=== PATIENT | female | born 1950 | race Caucasian/White ===

== ENCOUNTER 2018-08-22 05:54 | Day surgery (SDC) | payer OTHER, MEDICARE ==
--- NOTE | 2018-08-19 14:22 | PDHPUP ---
History & Physical Update H&P update statement: This history and physical update is based on an assessment of the patient which was completed after admission or registration (within 24 hours), but prior to the surgery/procedure. H&P update: H&P reviewed & patient examined
--- NOTE | 2018-08-21 20:06 | PDANEPAE ---
ANE History of Present Illness tonsillectomy. ANE Past Medical History - Cardiovascular History Hx Hypertension: No Hx Arrhythmias: No Hx Chest Pain: No Hx Coronary Artery / Peripheral Vascular Disease: No Hx CHF / Valvular Disease: No Hx Palpitations: No Cardiovascular History Comment: DIASTOLIC DYSFUNCTION. PVC'S - Pulmonary History Hx COPD: No Hx Asthma/Reactive Airway Disease: Yes Hx Recent Upper Respiratory Infection: No Hx Oxygen in Use at Home: No Hx Sleep Apnea: Yes Pulmonary History Comment: PE POST HIP REPLACEMENT SURG 05/2018. ASTHMA TRIGGERS EXERCISE INDUCED,ENVIRONMENTAL. SHERLYN USES C-PAP. NODULE LT LUNG - Neurologic History Hx Cerebrovascular Accident: No Hx Seizures: No Hx Dementia: No - Endocrine History Hx Diabetes: Yes Hypothyroid: Yes Hyperthyroid: No Obesity: severe Endocrine History Comment: HYPOTHYROID. THYROID NODULES - Renal History Hx Renal Disorders: No - Liver History Hx Hepatic Disorders: No - Neurological & Psychiatric Hx Hx Neurological and Psychiatric Disorders: No - Cancer History Hx Cancer: Yes Cancer History Comment: SKIN - Congenital Disorder History Hx Congenital Disorders: No - GI History Hx Gastrointestinal Disorders: Yes Gastrointestinal History Comment: CONSTIPATION - Other Health History Other Health History: DYSPHAGIA. ECZEMA RT HAND. CLARENCE LOWER EXT SWELLING. RHEUMATOID ARTHRITIS CURRENTLY NOT ON MEDICATION. NO ISSUES PER PATIENT WITH FLEXION/EXTENSION OR ROTATION OF NECK - Chronic Pain History Chronic Pain: Yes (LT HIP) - Surgical History Prior Surgeries: LT TOTAL HIP 06/02/2018 AT [facility] HAD POST OP PE. LUMBAR FUSION 08/2017. PAMELA. CERVICAL FUSION X3. HYSTERECTOMY. CLARENCE FOOT CORRECTION BIG TOE. LT TOTAL KNEE ANE Review of Systems Review of Systems: - Exercise capacity METS (RN): 2 METS ANE Patient History - Allergies Allergies/Adverse Reactions: cephalexin [From Keflex] Allergy (Verified 08/19/18 11:42) Rash clindamycin Allergy (Verified 08/19/18 11:42) RASH/ITCHING codeine Allergy (Verified 08/19/18 11:42) RASH/ITCHING erythromycin base Allergy (Verified 08/19/18 11:42) Vomiting hydrocodone [From Vicodin] Allergy (Verified 08/19/18 11:44) Vomiting hydroxychloroquine Allergy (Verified 08/19/18 11:45) RASH/ITCHING leflunomide Allergy (Verified 08/19/18 11:44) RED MELGOZA ALL OVER LEGS morphine Allergy (Verified 08/19/18 11:44) Vomiting oxycodone [From Percocet] Allergy (Verified 08/19/18 11:44) RASH/ITCHING Penicillins Allergy (Verified 08/19/18 11:44) Hives - Home Medications Home Medications: Advair 250/50 (*) BID 08/19/18 [Last Taken 08/22/18] Diclofenac Sodium BID 08/19/18 [Last Taken 08/16/18] Estradiol Transdermal Patch ONCE 08/19/18 [Last Taken Unknown] Furosemide DAILY 08/19/18 [Last Taken 08/21/18] Herbals/Supplements -Info Only DAILY 08/19/18 [Last Taken Unknown] Levothyroxine DAILY 08/19/18 [Last Taken 08/21/18] Lovenox BID 08/19/18 [Last Taken 08/21/18] Omeprazole DAILY 08/19/18 [Last Taken 08/21/18] Preservision Areds 2 Softgel DAILY 08/19/18 [Last Taken 08/17/18] Spironolactone DAILY 08/19/18 [Last Taken 08/21/18] Stool Softener HS 08/19/18 [Last Taken 08/21/18] Ventolin Hfa DAILY 08/19/18 [Last Taken 08/22/18] Xarelto DAILY 08/19/18 [Last Taken 08/17/18] - Anes Hx Anes Hx: post operative nausea - Smoking Hx Smoking Status: Former smoker Marijuana use: No - Alcohol Use Alcohol Use: Occasionally - Family Anes Hx Family Hx Anesthesia Complications: daughter wakes up slowly ANE Labs/Vital Signs - Vital Signs Height: 162.56 cm Weight: 113.398 kg ANE Physical Exam - Airway Neck exam: decreased ROM (no pain) Mouth exam: normal dental/mouth exam (less than 3 FB opening) - Pulmonary Pulmonary: clear to auscultation - Cardiovascular Cardiovascular: regular rate and rhythym - ASA Status ASA Status: III ANE Anesthesia Plan Anesthesia Plan: general endotracheal anesthesia (Glidescope. Prolonged PACU stay discussed.)
[2018-08-22] MEDS ORDERED: LR 1,000 ML IV ONE (06:27)
[2018-08-22] MEDS ORDERED: MIDAZOLAM 2 MG/2 ML VIAL IVP ONE ×2 (07:00→08:20)
[2018-08-22] MEDS ORDERED: SCOPOLAMINE HYDROBROMIDE 1 MG/3 DAYS PATCH TD ONE (07:00)
[2018-08-22] MEDS ORDERED: REMIFENTANIL HCL 1 MG VIAL ONE (07:08)
[2018-08-22] MEDS ORDERED: fentaNYL 100 MCG/2 ML INJ ONE (07:09)
[2018-08-22] MEDS ORDERED: DEXAMETHASONE 4 MG/ML VIAL ONE ×2 (07:09→07:14)
[2018-08-22] MEDS ORDERED: PROPOFOL/EMULSION 500 MG/50 ML BOTTLE IV ONE (07:09)
[2018-08-22] MEDS ORDERED: ROCURONIUM 50 MG/5 ML VIAL ONE (07:09)
[2018-08-22] MEDS ORDERED: ONDANSETRON 4 MG/2 ML VIAL ONE ×2 (07:36→08:10)
[2018-08-22] MEDS ORDERED: SUGAMMADEX SODIUM 200 MG/2 ML VIAL IVP ONE ×2 (07:36→07:53)
[2018-08-22] MEDS ORDERED: HYDROmorphONE/DILAUDID 2 MG/ML INJ IVP PRN (07:50)
[2018-08-22] MEDS ORDERED: ONDANSETRON 4 MG/2 ML VIAL IVP PRN (07:50)
[2018-08-22] MEDS ORDERED: fentaNYL 100 MCG/2 ML INJ IVP PRN (07:50)
[2018-08-22] MEDS ORDERED: NALOXONE HCL 0.4 MG/ML INJ IVP PRN (07:50)
[2018-08-22] MEDS ORDERED: ALBUTEROL 3 ML DEYVIAL IH PRN (07:50)
[2018-08-22] MEDS ORDERED: D5W 1/2 NS 1,000 ML IV SCH (08:30)
[2018-08-22] MEDS ORDERED: PROMETHAZINE HCL 25 MG/ML INJ IVP ONE (08:30)
[2018-08-22] MEDS ORDERED: PROMETHAZINE HCL 25 MG/ML INJ ONE (08:31)
--- NOTE | 2018-08-22 09:49 | POSTANESTH ---
Post Anesthetic Evaluation Cardiovascular Status: Normal, Stable Respiratory Status: Similar to Pre-op Cond. Level of Consciousness/Mental Status: Can Participate in Eval Pain Control: Adequate, Prn Tx Ordered Nausea/Vomiting Control: Adequate, Prn Tx Ordered Complications Possibly Related to Anesthesia: None Noted
[2018-08-22 10:48] VITALS: BP 118/70
--- NOTE | 2018-08-22 15:45 | GOP ---
DATE OF OPERATION: 08/22/2018 SURGEON: Jitendra Low MD ANESTHESIA: General endotracheal. PREOPERATIVE DIAGNOSIS: Right tonsillar mass. POSTOPERATIVE DIAGNOSIS: Right tonsillar mass. PROCEDURE PERFORMED: Right-sided tonsillectomy. FINDINGS: Right tonsil. SPECIMENS: Right tonsil. ESTIMATED BLOOD LOSS: 5 mL. DESCRIPTION OF PROCEDURE: The patient was placed in the supine position. Orally endotracheally intu bated. She had a PET-CT that showed avid uptake in the right tonsil. She has an avid uptake in the left lung. She presents for tonsillectomy. A mouth gag was placed. The right tonsil was grasped wi th a tonsil tenaculum and removed with cautery. The specimen was sent to pathology for permanent sec tion analysis. The left tonsil was palpably benign. Hemostasis was achieved and the tonsillar fossa with suction cautery. The nasopharynx and stomach were suctioned. She tolerated the procedure well and was in good condition at the end the procedure. /[id number]/MODL
== END 2018-08-22 11:02 | disposition home or self-care (01) ==
LOC: FSGY 05:54
PROVIDERS: ATTEND Otolaryngology
PROC: 0CTPXZZ Resection of Tonsils, External Approach (ICD-10-PCS; principal; 2018-08-22 07:15)
DX: J03.80 Acute tonsillitis due to other specified organisms (principal); B96.89 Other specified bacterial agents as the cause of diseases classified elsewhere; G47.33 Obstructive sleep apnea (adult) (pediatric); E03.9 Hypothyroidism, unspecified; M06.9 Rheumatoid arthritis, unspecified; Z86.711 Personal history of pulmonary embolism; Z79.01 Long term (current) use of anticoagulants; Z96.642 Presence of left artificial hip joint; Z98.1 Arthrodesis status
CPT/HCPCS: J1100; J2250; J2405; J2550; J2704; J3010